=== PATIENT | female | born 1985 | race Two or more races ===

== ENCOUNTER 2016-04-30 00:35 | Emergency (ER) | payer MEDICAID ==
--- NOTE | 2016-04-30 01:02 | ER Document Report ---
ED Psych Disorder / Suicide - General Stated Complaint: SUICIDAL IDEATION Time seen by provider: 01:02 Mode of Arrival: Ambulatory Information source: Patient - HPI Patient complains to provider of: Bizarre behavior, Suicidal ideation Onset was: Cannot confirm Suicide Risk Factors: Lack of social support Normal mood: No Similar symptoms previously: Yes Notes: Patient is a 30-year-old female presenting to the emergency room for mental health evaluation, she states that she does not remember large portions of her life, including where her 2-year-old daughter is right now, stating that she feels like something bad has happened to her, she cannot or will not discuss where she has been over the past few months, where she is currently living, and will not provide her date of , in fact when she signed and she did so under a fictitious name, however one of the staff members here was able to identify patient as she went to elementary and high school with her, and did report to me that she was feeling suicidal, although she was unable to identify any specific plan to harm herself, during my evaluation she had poor eye contact and was not very forthcoming with information - Related Data Allergies/Adverse Reactions: No Known Allergies Allergy (Unverified 04/30/16 02:33) Past Medical History - General Information source: Patient - Social History Smoking Status: Current Every Day Smoker Family History: Reviewed & Not Pertinent Review of Systems - Review of Systems Constitutional: No symptoms reported EENT: No symptoms reported Cardiovascular: No symptoms reported Respiratory: No symptoms reported Gastrointestinal: No symptoms reported Genitourinary: No symptoms reported Female Genitourinary: No symptoms reported Musculoskeletal: No symptoms reported Skin: No symptoms reported Hematologic/Lymphatic: No symptoms reported Neurological/Psychological: See HPI -: Yes All other systems reviewed and negative Physical Exam - Vital signs Interpretation: Normal - General General appearance: Appears well, Alert - HEENT Head: Normocephalic, Atraumatic Eyes: Normal Pupils: PERRL - Respiratory Respiratory status: No respiratory distress Chest status: Nontender Breath sounds: Normal Chest palpation: Normal - Cardiovascular Rhythm: Regular Heart sounds: Normal auscultation Murmur: No - Abdominal Inspection: Normal Distension: No distension Bowel sounds: Normal Tenderness: Nontender Organomegaly: No organomegaly - Back Back: Normal, Nontender - Extremities General upper extremity: Normal inspection, Nontender, Normal color, Normal ROM , Normal temperature General lower extremity: Normal inspection, Nontender, Normal color, Normal ROM , Normal temperature, Normal weight bearing. No: Ladi's sign - Neurological Neuro grossly intact: Yes Cognition: Normal Orientation: AAOx4 Krystal Coma Scale Eye Opening: Spontaneous Ravena Coma Scale Verbal: Oriented Krystal Coma Scale Motor: Obeys Commands Krystal Coma Scale Total: 15 Speech: Normal Motor strength normal: LUE, RUE, LLE, RLE Sensory: Normal - Psychological Associated symptoms: Tangential speech, Other - Bizarre behavior, suicidal ideation - Skin Skin Temperature: Warm Skin Moisture: Dry Skin Color: Normal Course - Re-evaluation Re-evalutation: 04/30/16 05:06 IVC paper work has been completed on patient, she will remain in the emergency room for further evaluation by mental health team, at one time she did become uncooperative and aggressive, requiring physical and pharmacological restraints , however she is now resting comfortably with no signs of distress - Laboratory Result Diagrams: 04/30/16 01:56 04/30/16 01:56 Laboratory results interpreted by me: 04/30/16 04/30/16 01:56 01:56 WBC 10.7 H RDW 14.5 H Sodium 147.7 H Chloride 109 H Glucose 116 H Salicylates < 1.0 L Acetaminophen < 10 L - EKG Interpretation by Me EKG shows normal: Sinus rhythm Rate: Normal Rhythm: NSR Discharge - Discharge Clinical Impression: Suicidal ideation Condition: Stable Disposition: PSYCH HOSP/UNIT
[2016-04-30] MEDS ORDERED: DIPHENHYDRAMINE HCL 50 MG/ML VIAL IM ONE (01:29)
[2016-04-30] MEDS ORDERED: LORAZEPAM INJ 2 MG/1 ML VIAL IM ONE (01:29)
[2016-04-30] MEDS ORDERED: HALOPERIDOL LACTATE INJ 5 MG/1 ML VIAL IM ONE (01:29)
[2016-04-30 02:11] LABS: ABSOLUTE BASOPHILS # (AUTO) 0.1 10^3/uL (0.0-0.2); ABSOLUTE EOSINOPHILS # (AUTO) 0.1 10^3/uL (0.0-0.6); ABSOLUTE LYMPHOCYTES (AUTO) 2.5 10^3/uL (0.5-4.7); ABSOLUTE MONOCYTES (AUTO) 0.6 10^3/uL (0.1-1.4); ABSOLUTE NEUT (AUTO) 7.5 10^3/uL (1.7-8.2); BASOPHILS % (AUTO) 0.5 % (0-2); EOSINOPHILS % (AUTO) 0.9 % (0-6); HEMATOCRIT 36.8 % (36.0-47.0); HGB HCT DIFFERENCE -0.8; LYMPHOCYTES % (AUTO) 23.5 % (13-45); MEAN CORPUSCULAR HEMOGLOBIN 27.8 pg (27.0-33.4); MEAN CORPUSCULAR HGB CONC 32.6 g/dL (32.0-36.0); MEAN CORPUSCULAR VOLUME 85 fl (80-97); MONOCYTES % (AUTO) 5.6 % (3-13); RED BLOOD COUNT 4.32 10^6/uL (3.72-5.28); RED CELL DISTRIBUTION WIDTH 14.5 % (11.5-14.0); SEGMENTED NEUTROPHILS % (AUTO) 69.5 % (42-78); WHITE BLOOD COUNT 10.7 10^3/uL (4.0-10.5)
[2016-04-30 02:37] LABS: ALANINE AMINOTRANSFERASE 35 U/L (9-52); ALBUMIN 4.7 g/dL (3.5-5.0); ALKALINE PHOSPHATASE 48 U/L (38-126); ANION GAP 14 (5-19); ASPARTATE AMINO TRANSFERASE 22 U/L (14-36); BILIRUBIN,TOTAL 0.4 mg/dL (0.2-1.3); BLOOD UREA NITROGEN 11 mg/dL (7-20); CALCIUM 10.2 mg/dL (8.4-10.2); CARBON DIOXIDE 25 mmol/L (22-30); CHLORIDE 109 mmol/L (98-107); CREATININE RESULT 0.58 mg/dL (0.52-1.25); GLUCOSE 116 mg/dL (75-110); POTASSIUM 4.7 mmol/L (3.6-5.0); SODIUM 147.7 mmol/L (137-145); TOTAL PROTEIN 7.9 g/dL (6.3-8.2)
[2016-04-30 02:43] LABS: ALCOHOL < 10 mg/dL (NONE DETECTED)
--- NOTE | 2016-04-30 09:10 | ER Document Report ---
Doctor's Note Notes: 04/30/16 09:10 Provider note: I've seen and evaluated the patient, reviewed the chart including presenting complaints, vital signs, labs. The patient is a 30-year-old female who presented with suicidal ideation. She was noted to have tangential speech and bizarre behavior and felt to be at risk for self-harm, thus an IVC was created. Her vital signs of been stable. Her labs have been stable. Patient has been evaluated by psychiatry and felt not to meet criteria for acute inpatient psychiatric evaluation. On my evaluation, she denies any suicidal ideation. We will refer her to a [facility]. 04/30/16 13:00
[2016-04-30 09:11] VITALS: BP 91/48
--- NOTE | 2016-04-30 12:30 | PSYCHOLOGICAL NOTE ---
Psych Note - Psych Note Psych Note: Patient presented to the emergency room for mental health evaluation, she states that she does not remember large portions of her life, including where her 2-year-old daughter is right now, stating that she feels like something bad has happened to her, she cannot or will not discuss where she has been over the past few months, where she is currently living, and will not provide her date of , in fact when she signed and she did so under a fictitious name, however one of the staff members here was able to identify patient as she went to elementary and high school with her, and did report to me that she was feeling suicidal, although she was unable to identify any specific plan to harm herself. Patient was difficult to arouse and when ask how she slept, she stated "bad." when asked why she stated "homelessness." Patient was reminded that she spent the night in the ED and she stated "oh, fine." The patient states she is homeless and has no where to go. She continued to state that she hears voices on and off thorough out the day, outside of her head but does not recognize the voice. she continued to state that she has suffered from this on and off for years and she use to receive services from [facility] many years ago. Patient states that she "sometimes" has thoughts of hurting herself or others but denies having a plan. Patient was released from intermediate last night. V60.0 (Z59.0) Homelessness V62.5 (Z65.2) Problems related to [facility] Impression/plan: Patient is psychiatrically clear for discharge. Patient states that she hears voices on and off through out the day but does not present as responding to internally stimuli currently. Patient was observed thought the morning and patient only slept; not psychosis is noted. Patient does not met criteria for IVC per [place] GS 122 C. Patient is psychiatrically clear for discharge. Patient is recommended to follow up with [facility] upon discharge for outpatient services. Patient is also recommended for discharge planing to assist with reintegration and homelessness. Dr. Holt was consulted on the care and mangement of this patient; attending physician is in agreement with recommendations and disposition.
--- NOTE | 2016-04-30 19:36 | EKG REPORT ---
SEVERITY:- ABNORMAL ECG - SINUS RHYTHM ST ELEVATION SUGGESTS PERICARDITIS BORDERLINE PROLONGED QT INTERVAL : Confirmed by: Ara Pastor 30-Apr-2016 19:35:20
== END 2016-04-30 13:30 | disposition home or self-care (01) ==
LOC: EDBD → ER 00:35
DX: R45.851 Suicidal ideations (principal); F39 Unspecified mood [affective] disorder; F17.200 Nicotine dependence, unspecified, uncomplicated; Z78.1 Physical restraint status; Z59.0 Homelessness; Z65.2 Problems related to release from prison
CPT/HCPCS: 93005; 99285; 96372; 96374; 36415; 80307 ×3; 84703; 85025; 80053; 93010; J1200; J1630; J2060